=== PATIENT | female | born 1965 | race Caucasian/White ===

== ENCOUNTER → 2016-09-18 | Outpatient (CLI) | payer MEDICAID ==
[~2016-09-18] MED LIST: BENTYL GENERIC10 MG PO; CELEXA20 MG PO; CLARITIN 10MG T10 MG PO; COLACE GENERIC100 MG PO; ESTRACE 0.5MG0.5 MG OR; FLONASE 50 MCG16 GM; LISINOPRIL 20MG20 MG PO; LORTAB 7.5/3251 TAB PO; NAPROSYN 500MG500 MG PO; NEURONTIN 300M300 MG PO; NICOTINE T21 MG/24 H TD; OMEPRAZOLE40 MG PO
--- NOTE | 2016-09-18 09:37 | RADIOLOGY REPORT PS360 ---
LUMBAR SPINE COMP W/BEND VIEWS CLINICAL INDICATION: LOW BACK PAIN ORDERING PHYSICIAN: Roman Sargent MD PATIENT AGE: 50 years COMPARISON: None FINDINGS: AP, lateral, oblique, spot views, and lateral flexion and extension views are obtained. There are 6 lumbar segments. There is 1 cm anterolisthesis of L6 on S1 which does not appear to significantly change with flexion and extension. Pars defects are present at L6. There is mild degenerative disc disease at that level. The remaining disc spaces have an unremarkable appearance. No fracture or dislocation. No lytic or blastic change. There are mild facet arthritic changes at L6 S1. IMPRESSION: 1. 6 lumbar segments are present with grade 1 spondylolytic spondylolisthesis of L6 on S1 with mild facet arthritic changes at that level
== END ==
LOC: RAD 08:56
DX: M54.5 Low back pain (principal)

== ENCOUNTER → 2016-09-27 | Outpatient (CLI) | payer MEDICAID ==
--- NOTE | 2016-09-27 17:36 | RADIOLOGY REPORT PS360 ---
MRI-L-SPINE W/O, MRI-3D RENDERING/MYELOGRAM HISTORY: Low back pain with left-sided radiculopathy, degenerative disc disease, abnormal lumbar spine series SPONDYLOLISTHESIS, DDD LUMBAR ORDERING PHYSICIAN: Roman Sargent MD PATIENT AGE: 50 years COMPARISON: Lumbar spine films of 09/18/2016 TECHNIQUE: Standard multiplanar multiecho sequences are performed without contrast. 3-D MIP and myelographic images are also rendered and reviewed FINDINGS: As mentioned in the lumbar spine report there are 6 lumbar segments or there could perhaps be only 11 thoracic spine segments with ribs. Nonetheless the main abnormality is at the lumbosacral junction. The thoracolumbar junction and lower lumbar spine have an unremarkable appearance. No disc herniation, canal stenosis, disc desiccation, or other abnormalities evident other than at the lumbosacral junction which was reported as L6/S1 on the plain film but could perhaps be L5-S1. There is grade 1 spondylitic spondylolisthesis at the lumbosacral junction with 6 mm anterolisthesis of the lower lumbar segment with bulging disc and degenerative disc disease with disc desiccation. There is curvilinear increased T2 signal within the disc inferiorly best seen on the sagittal images suggest a small annular tear. There is moderate bilateral foraminal narrowing with some impingement upon L5 nerve roots bilaterally best seen on the sagittal images somewhat greater on the left. There are hypertrophic changes at the pars defect on both sides. IMPRESSION: 1. Grade 1 spondylolytic spondylolisthesis with degenerative disc disease and bulging disc with small annular tear at the lumbosacral junction with bilateral foraminal narrowing and mild impingement upon the exiting L5 nerve roots on both sides slightly greater on the left. IMPRESSION:
== END ==
LOC: RAD 08:15
DX: M43.10 Spondylolisthesis, site unspecified (principal); M51.36 Other intervertebral disc degeneration, lumbar region